=== PATIENT | female | born 1940 | race Caucasian/White ===

== ENCOUNTER 2016-10-09 16:15 | Inpatient (IN) | payer MEDICARE ==
[~2016-10-09] VITALS: Ht 160 cm; Wt 53.5 kg
[~2016-10-09 16:15] MED LIST: AUD NEB; BISA10S PR; ERGO2000 PO; FURO20 PO; IPRNEB IH; LACT30L PO; LINE600 PO; MOM30 PO; ONDA4 PO; PANT40TA25 PO
[2016-10-09] MEDS ORDERED: FOLI0.8T2 PO (16:27)
[2016-10-09] MEDS ORDERED: IPRA3AMP4 NEB (16:27)
[2016-10-09] MEDS ORDERED: INSLAN SQ (16:27)
[2016-10-09] MEDS ORDERED: KDUR20 PO (16:27)
[2016-10-09 17:41] LABS: ANION GAP 7 mmol/L (8-16); CALCIUM, TOTAL 8.3 mg/dL (8.8-10.5); CARBON DIOXIDE 30 mmol/L (22-29); CHLORIDE 101 mmol/L (98-107); CREATININE 0.99 mg/dL (0.60-1.30); GLOMERULAR FILTR. RATE CALC 55 mL/min (>60); POTASSIUM 3.4 mmol/L (3.5-5.1); SODIUM SERUM 138 mmol/L (136-145); UREA NITROGEN, BLOOD 16 mg/dL (7-18)
[2016-10-09 17:43] LABS: HEMATOCRIT 30.3 % (36-46); HEMOGLOBIN 9.5 g/dL (12.0-16.0); MEAN CORPUSCULAR HEMOGLOBIN 25.8 pg (26.0-34.0); MEAN CORPUSCULAR HGB CONC 31.4 G/dL (31.0-37.0); MEAN CORPUSCULAR VOLUME 82 fL (80-100); PLATELET COUNT (AUTO) 247 K/uL (150-450); RED BLOOD CELL COUNT(AUTO) 3.68 MIL/uL (4.00-5.20); RED CELL DISTRIBUTION WIDTH 27.8 % (11.5-14.5); WHITE BLOOD COUNT (AUTO) 9.9 K/uL (4.5-11.0)
[2016-10-09 17:48] LABS: INR 1.3 (0.9-1.1); PROTHROMBIN TIME 13.9 SEC (9.4-11.6)
[2016-10-09 17:48] LABS: ALANINE AMINOTRANSFERASE 78 U/L (12-78); ALBUMIN 1.8 g/dL (3.4-5.0); ASPARTATE AMINOTRANSFERASE 161 U/L (15-37); BILIRUBIN,TOTAL 3.7 mg/dL (0.1-1.0); CREATINE KINASE, TOTAL 59 U/L (26-192)
[2016-10-09 17:49] LABS: TROPONIN I 0.21 ng/mL (0.00-0.05)
[2016-10-09 17:57] LABS: LACTIC ACID 2.2 mmol/L (0.4-2.0)
[2016-10-09 18:19] LABS: APPEARANCE,URINE CLOUDY (CLEAR); GLUCOSE, URINE (UA) NEGATIVE (NEGATIVE); KETONES,URINE NEGATIVE (NEGATIVE); LEUKOCYTE ESTERASE ,URINE SMALL (NEGATIVE); OCCULT BLOOD,URINE SMALL (NEGATIVE); PROTEIN,URINE SEE CONFIRM (NEGATIVE)
[2016-10-09 18:22] LABS: ADD UA MICROSCOPIC YES
[2016-10-09 18:35] LABS: SQUAMOUS EPITHELIAL CELL,UR Moderate /LPF (None Seen); SULFOSALICYLIC ACID,URINE 1+ (Negative)
[2016-10-09 18:44] LABS: BASOPHILS % (MANUAL) 1 % (0-2); LYMPHOCYTES % (MANUAL) 6 % (22-44); TOTAL CELLS COUNTED 100
[2016-10-09 18:47] LABS: RBC MORPHOLOGY COMMENT DIMORPHIC
[2016-10-09] MEDS ORDERED: CefTRIAXone 1 GM/DEXTROSE 50 ML IV ONE (19:00)
[2016-10-09 19:45] LABS: REFLEX LACTIC ACID? YES YES
[2016-10-09] MEDS ORDERED: ONDANSETRON HCL 4 MG/2 ML VIAL IVP PRN (23:15)
[2016-10-09] MEDS ORDERED: ACETAMINOPHEN 325 MG TABLET PO PRN (23:15)
[2016-10-09] MEDS ORDERED: 0.9% SODIUM CHLORIDE 10 ML SYRINGE IVP PRN (23:15)
[2016-10-09] MEDS ORDERED: ASPIRIN 81 MG CHEWABLE TABLET PO ONE (23:15)
[2016-10-09] MEDS ORDERED: POTASSIUM CHLORIDE 10% 40 MEQ/30 ML LIQUID UDCUP PO ONE (23:30)
[2016-10-09] MEDS ORDERED: PIPERACILLIN/TAZO 3.375 GM/D5W 50 ML IV ONE (23:30)
[2016-10-10] VITALS (7 sets, daily range): BP systolic 107–131; BP diastolic 50–77
[2016-10-10 07:37] LABS: HEMATOCRIT 29.3 % (36-46); HEMOGLOBIN 9.2 g/dL (12.0-16.0); MEAN CORPUSCULAR HEMOGLOBIN 26.1 pg (26.0-34.0); MEAN CORPUSCULAR HGB CONC 31.4 G/dL (31.0-37.0); MEAN CORPUSCULAR VOLUME 83 fL (80-100); PLATELET COUNT (AUTO) 224 K/uL (150-450); RED BLOOD CELL COUNT(AUTO) 3.52 MIL/uL (4.00-5.20); WHITE BLOOD COUNT (AUTO) 8.5 K/uL (4.5-11.0)
[2016-10-10 08:08] LABS: ALBUMIN 1.6 g/dL (3.4-5.0); BILIRUBIN,TOTAL 3.6 mg/dL (0.1-1.0); CALCIUM, TOTAL 7.9 mg/dL (8.8-10.5); POTASSIUM 3.6 mmol/L (3.5-5.1); TOTAL PROTEIN, SERUM 6.4 g/dL (6.4-8.2)
[2016-10-10] MEDS ORDERED: DEXTROSE 50%-WATER 25 GM/50 ML SYRINGE IVP PRN (08:30)
[2016-10-10 08:56] LABS: LYMPHOCYTES % (MANUAL) 7 % (22-44); TOTAL CELLS COUNTED 100
[2016-10-10] MEDS: CARVEDILOL 3.125 MG TABLET PO SCH ×2 (09:22→20:35)
[2016-10-10] MEDS: ASPIRIN 81 MG CHEWABLE TABLET PO SCH (09:22)
[2016-10-10] MEDS: INSULIN ASPART 100 UNITS/ML SQ PRN ×3 (12:12→20:40)
[2016-10-10] MEDS ORDERED: VANCOMYCIN HCL 1 GM/D5% WATER 200 ML IV ONE (14:00)
[2016-10-10] MEDS ORDERED: SODIUM CHLORIDE 0.9% 100 ML ONE (14:49)
[2016-10-10] MEDS: PIPERACILLIN SODIUM/TAZOBACTAM 2.25 GM in DEXTROSE 5%-WATER 50 ML IV SCH ×2 (15:08→20:35)
[2016-10-10 17:36] LABS: GLUCOSE COMMENT 1 Received Meds; GLUCOSE,POINT OF CARE 193 MG/DL (70-110)
[2016-10-10] MEDS ORDERED: VANCOMYCIN HCL 500 MG in DEXTROSE 5%-WATER 100 ML IV SCH (20:00)
[2016-10-10] MEDS: SIMVASTATIN 20 MG TABLET PO SCH (20:36)
[2016-10-11] VITALS (7 sets, daily range): BP systolic 100–127; BP diastolic 43–78
[2016-10-11] MEDS: PIPERACILLIN SODIUM/TAZOBACTAM 2.25 GM in DEXTROSE 5%-WATER 50 ML IV SCH ×4 (02:02→20:05)
[2016-10-11] MEDS: INSULIN ASPART 100 UNITS/ML SQ PRN ×4 (05:45→20:48)
[2016-10-11 06:22] LABS: HEMATOCRIT 25.7 % (36-46); HEMOGLOBIN 8.2 g/dL (12.0-16.0); MEAN CORPUSCULAR HEMOGLOBIN 26.3 pg (26.0-34.0); MEAN CORPUSCULAR VOLUME 82 fL (80-100); PLATELET COUNT (AUTO) 190 K/uL (150-450); RED BLOOD CELL COUNT(AUTO) 3.14 MIL/uL (4.00-5.20); RED CELL DISTRIBUTION WIDTH 27.9 % (11.5-14.5); WHITE BLOOD COUNT (AUTO) 6.7 K/uL (4.5-11.0)
[2016-10-11 06:35] LABS: HEMOGLOBIN A1C 6.2 % (4.5-6.2)
[2016-10-11 07:17] LABS: CALCIUM, TOTAL 7.6 mg/dL (8.8-10.5); CHOL/HDL RATIO 13.1 (3.9-5.7); CREATININE 1.25 mg/dL (0.60-1.30); MAGNESIUM 1.7 mg/dL (1.80-2.40); POTASSIUM 4.2 mmol/L (3.5-5.1); THYROID STIMULATING HORMONE 8.14 uIU/mL (0.36-3.74)
[2016-10-11] MEDS: ASPIRIN 81 MG CHEWABLE TABLET PO SCH (08:10)
[2016-10-11] MEDS: VANCOMYCIN HCL 1 GM/D5% WATER 200 ML IV SCH (08:49)
[2016-10-11] MEDS ORDERED: SODIUM CHLORIDE 0.9% 100 ML ONE (09:49)
[2016-10-11] MEDS: CARVEDILOL 3.125 MG TABLET PO SCH ×2 (09:50→20:05)
[2016-10-11 09:53] LABS: VITAMIN B12 LEVEL > 2000 pg/mL (211-911)
[2016-10-11 10:49] LABS: RBC MORPHOLOGY COMMENT ABNORMAL RBC MORPH
[2016-10-11 11:04] LABS: LYMPHOCYTES % (MANUAL) 12 % (22-44); TOTAL CELLS COUNTED 100
[2016-10-11] MEDS ORDERED: MAGNESIUM SULFATE 4 GM/WATER 100 ML IV PRN (13:45)
[2016-10-11] MEDS ORDERED: MAGNESIUM SULFATE 2 GM in DEXTROSE 5%-WATER 50 ML IV PRN (13:45)
[2016-10-11] MEDS ORDERED: 0.9% SODIUM CHLORIDE 10 ML SYRINGE IVP PRN (14:15)
[2016-10-11 14:48] LABS: ALBUMIN 1.5 g/dL (3.4-5.0)
[2016-10-11] MEDS: EPOETIN ALFA 10,000 UNITS/ML VIAL SQ SCH (15:24)
[2016-10-11] MEDS: MAGNESIUM OXIDE 400 MG TABLET PO PRN ×2 (15:28→17:54)
[2016-10-11] MEDS: SIMVASTATIN 20 MG TABLET PO SCH (20:05)
[2016-10-11 20:07] LABS: GLUCOSE COMMENT 1 Received Meds; GLUCOSE,POINT OF CARE 233 MG/DL (70-110)
[2016-10-11 20:07] LABS: GLUCOSE,POINT OF CARE 154 MG/DL (70-110)
[2016-10-11 20:07] LABS: GLUCOSE COMMENT 1 Received Meds; GLUCOSE,POINT OF CARE 198 MG/DL (70-110)
[2016-10-11 20:07] LABS: GLUCOSE COMMENT 1 Received Meds; GLUCOSE,POINT OF CARE 221 MG/DL (70-110)
[2016-10-11 20:07] LABS: GLUCOSE COMMENT 1 Received Meds; GLUCOSE,POINT OF CARE 157 MG/DL (70-110)
[2016-10-11] MEDS: INSULIN DETEMIR 100 UNITS/ML SQ SCH (20:47)
[2016-10-12] VITALS (8 sets, daily range): BP systolic 95–152; BP diastolic 46–61
[2016-10-12] MEDS: PIPERACILLIN SODIUM/TAZOBACTAM 2.25 GM in DEXTROSE 5%-WATER 50 ML IV SCH ×2 (03:18→07:14)
[2016-10-12 06:34] LABS: HEMATOCRIT 26.3 % (36-46); HEMOGLOBIN 8.3 g/dL (12.0-16.0); MEAN CORPUSCULAR HGB CONC 31.5 G/dL (31.0-37.0); MEAN CORPUSCULAR VOLUME 83 fL (80-100); PLATELET COUNT (AUTO) 172 K/uL (150-450); RED BLOOD CELL COUNT(AUTO) 3.19 MIL/uL (4.00-5.20); RED CELL DISTRIBUTION WIDTH 27.2 % (11.5-14.5); WHITE BLOOD COUNT (AUTO) 7.5 K/uL (4.5-11.0)
[2016-10-12 07:23] LABS: CALCIUM, TOTAL 7.5 mg/dL (8.8-10.5); CREATININE 1.42 mg/dL (0.60-1.30); MAGNESIUM 1.9 mg/dL (1.80-2.40); POTASSIUM 3.3 mmol/L (3.5-5.1); THYROID STIMULATING HORMONE 14.26 uIU/mL (0.36-3.74)
[2016-10-12] MEDS: ASPIRIN 81 MG CHEWABLE TABLET PO SCH (07:43)
[2016-10-12] MEDS: FOLIC ACID 1 MG TABLET PO SCH (07:44)
[2016-10-12] MEDS: CARVEDILOL 3.125 MG TABLET PO SCH ×2 (07:45→20:15)
[2016-10-12] MEDS: VANCOMYCIN HCL 1 GM/D5% WATER 200 ML IV SCH (08:16)
[2016-10-12 10:00] LABS: BAND NEUTROPHILS % (MANUAL) 1 % (1-5); LYMPHOCYTES % (MANUAL) 13 % (22-44); TOTAL CELLS COUNTED 100
[2016-10-12 10:02] LABS: RBC MORPHOLOGY COMMENT ABNORMAL R
[2016-10-12] MEDS ORDERED: POTASSIUM CHLORIDE 20 MEQ ER TABLET PO ONE (11:15)
[2016-10-12] MEDS: INSULIN ASPART 100 UNITS/ML SQ PRN ×3 (11:32→20:47)
[2016-10-12] MEDS: LEVOTHYROXINE SODIUM 25 MCG TABLET PO SCH (11:55)
[2016-10-12] MEDS: CefTRIAXone 1 GM/DEXTROSE 50 ML IV SCH (12:37)
[2016-10-12] MEDS: FLUCONAZOLE IV SCH (15:03)
[2016-10-12] MEDS: NACL ISOOSM IV SCH (15:03)
[2016-10-12 19:56] LABS: GLUCOSE COMMENT 1 Received Meds; GLUCOSE,POINT OF CARE 152 MG/DL (70-110)
[2016-10-12 19:56] LABS: GLUCOSE COMMENT 1 Received Meds; GLUCOSE,POINT OF CARE 218 MG/DL (70-110)
[2016-10-12 19:56] LABS: GLUCOSE COMMENT 1 Received Meds; GLUCOSE,POINT OF CARE 220 MG/DL (70-110)
[2016-10-12] MEDS: SIMVASTATIN 20 MG TABLET PO SCH (20:15)
[2016-10-12] MEDS: INSULIN DETEMIR 100 UNITS/ML SQ SCH (20:48)
[2016-10-13 04:23] VITALS: BP 133/58
[2016-10-13] MEDS: LEVOTHYROXINE SODIUM 25 MCG TABLET PO SCH ×2 (06:30→06:32)
[2016-10-13] MEDS: INSULIN ASPART 100 UNITS/ML SQ PRN (06:38)
[2016-10-13 07:05] LABS: GLUCOSE,POINT OF CARE 93 MG/DL (70-110)
[2016-10-13 07:06] LABS: GLUCOSE,POINT OF CARE 232 MG/DL (70-110)
[2016-10-13 07:21] VITALS: BP 126/54
[2016-10-13 07:54] LABS: HEMATOCRIT 27.3 % (36-46); HEMOGLOBIN 8.7 g/dL (12.0-16.0); MEAN CORPUSCULAR HEMOGLOBIN 26.1 pg (26.0-34.0); MEAN CORPUSCULAR HGB CONC 31.8 G/dL (31.0-37.0); MEAN CORPUSCULAR VOLUME 82 fL (80-100); PLATELET COUNT (AUTO) 191 K/uL (150-450); RED BLOOD CELL COUNT(AUTO) 3.32 MIL/uL (4.00-5.20); RED CELL DISTRIBUTION WIDTH 26.8 % (11.5-14.5); WHITE BLOOD COUNT (AUTO) 8.1 K/uL (4.5-11.0)
[2016-10-13 08:05] LABS: CALCIUM, TOTAL 7.3 mg/dL (8.8-10.5); CREATININE 1.37 mg/dL (0.60-1.30); POTASSIUM 3.7 mmol/L (3.5-5.1)
[2016-10-13] MEDS: ASPIRIN 81 MG CHEWABLE TABLET PO SCH (08:37)
[2016-10-13] MEDS: FOLIC ACID 1 MG TABLET PO SCH (08:37)
[2016-10-13] MEDS: CARVEDILOL 3.125 MG TABLET PO SCH (08:37)
[2016-10-13 08:39] LABS: BASOPHILS % (MANUAL) 1 % (0-2); LYMPHOCYTES % (MANUAL) 10 % (22-44); TOTAL CELLS COUNTED 100
[2016-10-13 08:42] LABS: RBC MORPHOLOGY COMMENT ABNORMAL RBC MORPH
[2016-10-13] MEDS: EPOETIN ALFA 10,000 UNITS/ML VIAL SQ SCH (08:43)
[2016-10-13] MEDS ORDERED: DOCUSATE SODIUM 100 MG CAPSULE PO SCH (09:00)
[2016-10-13] MEDS ORDERED: LACTULOSE 20 GM/30 ML SOLUTION UDCUP PO PRN (09:00)
[2016-10-13] MEDS ORDERED: SODIUM CHLORIDE 0.9% 500 ML IV ONE (09:00)
[2016-10-13] MEDS ORDERED: BISACODYL 5 MG EC TABLET PO PRN (09:00)
[2016-10-13 11:30] VITALS: BP 115/52
[2016-10-13 12:11] LABS: GLUCOSE COMMENT 1 Received Meds; GLUCOSE,POINT OF CARE 162 MG/DL (70-110)
[2016-10-13] MEDS: FLUCONAZOLE IV SCH (13:50)
[2016-10-13] MEDS: NACL ISOOSM IV SCH (13:50)
[2016-10-13] MEDS ORDERED: HEPARIN SODIUM 1000 UNITS/NS 500 ML ONE (15:11)
[2016-10-13 16:17] VITALS: BP 121/60
[2016-10-13] MEDS: CefTRIAXone 1 GM/DEXTROSE 50 ML IV SCH (17:24)
[2016-10-13] MEDS ORDERED: ASPI81TA2 PO (18:40)
[2016-10-13] MEDS ORDERED: CARV3 PO (18:46)
[2016-10-13] MEDS ORDERED: LEVO25TA9 PO (18:47)
[2016-10-13] MEDS ORDERED: SIMV-259 PO (18:49)
[2016-10-14 00:47] LABS: GLUCOSE,POINT OF CARE 96 MG/DL (70-110)
[2016-10-25 12:32] LABS: GLUCOSE,POINT OF CARE 164 MG/DL (70-110)
== END 2016-10-13 18:30 | DRG 871 ==
LOC: EMS 16:17 → 5N 23:18
PROVIDERS: ADMIT Internal Medicine Geriatric Medicine; ATTEND Internal Medicine Geriatric Medicine
PROC: 05HB33Z Insertion of Infusion Device into Right Basilic Vein, Percutaneous Approach (ICD-10-PCS; principal; 2016-10-13)
PROC: B54MZZA Ultrasonography of Right Upper Extremity Veins, Guidance (ICD-10-PCS; 2016-10-13)
DX: A41.9 Sepsis, unspecified organism (principal); G93.40 Encephalopathy, unspecified; E43 Unspecified severe protein-calorie malnutrition; E87.1 Hypo-osmolality and hyponatremia; I13.0 Hypertensive heart and chronic kidney disease with heart failure and stage 1 through stage 4 chronic kidney disease, or unspecified chronic kidney disease; N12 Tubulo-interstitial nephritis, not specified as acute or chronic; G81.94 Hemiplegia, unspecified affecting left nondominant side; R62.7 Adult failure to thrive; I25.10 Atherosclerotic heart disease of native coronary artery without angina pectoris; I50.9 Heart failure, unspecified; K74.60 Unspecified cirrhosis of liver; D64.9 Anemia, unspecified; E78.00 Pure hypercholesterolemia, unspecified; F03.90 Unspecified dementia, unspecified severity, without behavioral disturbance, psychotic disturbance, mood disturbance, and anxiety; E11.22 Type 2 diabetes mellitus with diabetic chronic kidney disease; E03.9 Hypothyroidism, unspecified; N18.9 Chronic kidney disease, unspecified; E11.51 Type 2 diabetes mellitus with diabetic peripheral angiopathy without gangrene; K59.00 Constipation, unspecified; Z89.611 Acquired absence of right leg above knee; Z79.4 Long term (current) use of insulin; Z79.899 Other long term (current) drug therapy; Z95.5 Presence of coronary angioplasty implant and graft; Z95.1 Presence of aortocoronary bypass graft; Z68.20 Body mass index [BMI] 20.0-20.9, adult; Z87.442 Personal history of urinary calculi; Z87.01 Personal history of pneumonia (recurrent); Z88.8 Allergy status to other drugs, medicaments and biological substances
CPT/HCPCS: 36245; 36569; 70450; 74176; 82306; 82607; 82746; 82962; 83036; 83605; 83735; 84439; 84443; 87040; 87081; 93005; 96365; 96367; 97110; 97163; 97166; 97535; 99285; J0696; J0885; J1450; J1644; J2543; J3370; J7040; J7050; J7060

== ENCOUNTER 2016-10-28 17:23 | Inpatient (IN) | payer MEDICARE ==
[~2016-10-28] VITALS: Ht 154.9 cm; Wt 58.6 kg
[~2016-10-28 17:23] MED LIST changes: +ASPI81TA2 PO; -AUD NEB; -BISA10S PR; +CARV3 PO; -ERGO2000 PO; +FOLI0.8T2 PO; -FURO20 PO; +INSLAN SQ; -IPRNEB IH; -LACT30L PO; +LEVO25TA9 PO; -LINE600 PO; -MOM30 PO; -ONDA4 PO; -PANT40TA25 PO; +SIMV-259 PO
[2016-10-28 17:37] LABS: GLUCOSE,POINT OF CARE 109 MG/DL (70-110)
[2016-10-28] MEDS ORDERED: MOM30 PO (17:40)
[2016-10-28] MEDS ORDERED: LACT30L PO (17:40)
[2016-10-28] MEDS ORDERED: ACET-2247 PO (17:40)
[2016-10-28] MEDS ORDERED: BISA10S PR (17:40)
[2016-10-28] MEDS ORDERED: DSS100 PO (17:40)
[2016-10-28] MEDS ORDERED: FE PR (17:40)
[2016-10-28] MEDS ORDERED: SODIUM CHLORIDE 0.9% 1,000 ML IV ONE ×2 (17:45→19:15)
[2016-10-28 17:52] LABS: ANION GAP 13 mmol/L (8-16); CALCIUM, TOTAL 8.5 mg/dL (8.8-10.5); CARBON DIOXIDE 25 mmol/L (22-29); CHLORIDE 110 mmol/L (98-107); CREATININE 1.85 mg/dL (0.60-1.30); GLOMERULAR FILTR. RATE CALC 27 mL/min (>60); POTASSIUM 4.1 mmol/L (3.5-5.1); SODIUM SERUM 148 mmol/L (136-145); UREA NITROGEN, BLOOD 51 mg/dL (7-18)
[2016-10-28 17:58] LABS: HEMATOCRIT 38.5 % (36-46); HEMOGLOBIN 11.8 g/dL (12.0-16.0); MEAN CORPUSCULAR HEMOGLOBIN 25.7 pg (26.0-34.0); MEAN CORPUSCULAR HGB CONC 30.6 G/dL (31.0-37.0); MEAN CORPUSCULAR VOLUME 84 fL (80-100); PLATELET COUNT (AUTO) 241 K/uL (150-450); RED BLOOD CELL COUNT(AUTO) 4.58 MIL/uL (4.00-5.20); RED CELL DISTRIBUTION WIDTH 25.4 % (11.5-14.5); WHITE BLOOD COUNT (AUTO) 5.1 K/uL (4.5-11.0)
[2016-10-28 18:00] LABS: PROTHROMBIN TIME 21.3 SEC (9.4-11.6)
[2016-10-28 18:07] LABS: LACTIC ACID 7.9 mmol/L (0.4-2.0)
[2016-10-28] MEDS ORDERED: NOREPINEPHRINE 4 MG/D5%-WATER 250 ML IV ONE (18:10)
[2016-10-28 18:15] LABS: ALANINE AMINOTRANSFERASE 64 U/L (12-78); ALBUMIN 1.4 g/dL (3.4-5.0); ASPARTATE AMINOTRANSFERASE 162 U/L (15-37); CREATINE KINASE MB 2.7 ng/mL (0-5); CREATINE KINASE, TOTAL 92 U/L (26-192); TOTAL PROTEIN, SERUM 5.3 g/dL (6.4-8.2)
[2016-10-28 18:29] LABS: APPEARANCE,URINE CLOUDY (CLEAR); GLUCOSE, URINE (UA) NEGATIVE (NEGATIVE); KETONES,URINE NEGATIVE (NEGATIVE); LEUKOCYTE ESTERASE ,URINE TRACE (NEGATIVE); OCCULT BLOOD,URINE NEGATIVE (NEGATIVE); PROTEIN,URINE POS 1+ (NEGATIVE)
[2016-10-28 18:31] LABS: BAND NEUTROPHILS % (MANUAL) 13 % (1-5); LYMPHOCYTES % (MANUAL) 18 % (22-44); TOTAL CELLS COUNTED 100
[2016-10-28 18:38] LABS: ADD UA MICROSCOPIC YES
[2016-10-28] MEDS ORDERED: NOREPINEPHRINE 4 MG/D5%-WATER 250 ML IV PRN ×2 (18:45→19:15)
[2016-10-28] MEDS ORDERED: RAPID SEQUENCE KIT [RSI] 1 EACH KIT ONE ×2 (18:48)
[2016-10-28] MEDS ORDERED: SUCCINYLCHOLINE CHLORIDE 20 MG/ML 10 ML VIAL ONE (18:49)
[2016-10-28 18:59] LABS: COARSE GRANULAR CASTS,URINE 0-2 /LPF (None Seen); SQUAMOUS EPITHELIAL CELL,UR Few /LPF (None Seen)
[2016-10-28 19:00] LABS: AMORPHOUS SEDIMENT,UR Few /LPF (None Seen)
[2016-10-28 19:04] LABS: RBC,URINE None Seen /HPF (0-2)
[2016-10-28] MEDS ORDERED: HEPARIN SODIUM,PORCINE 5,000 UNITS/ML VIAL IVP ONE ×2 (19:15→19:45)
[2016-10-28] MEDS ORDERED: ETOMIDATE 2 MG/ML 10 ML VIAL IVP ONE (19:15)
[2016-10-28] MEDS ORDERED: SUCCINYLCHOLINE CHLORIDE 20 MG/ML 10 ML VIAL IVP ONE (19:15)
[2016-10-28] MEDS ORDERED: HEPARIN SODIUM 25000 UNITS/D5W 250 ML IV PRN (19:15)
[2016-10-28] MEDS ORDERED: ACETAMINOPHEN 325 MG TABLET PO PRN (19:30)
[2016-10-28] MEDS ORDERED: ONDANSETRON HCL 4 MG/2 ML VIAL IVP PRN (19:30)
[2016-10-28] MEDS ORDERED: 0.9% SODIUM CHLORIDE 10 ML SYRINGE IVP PRN (19:30)
[2016-10-28 19:39] LABS: REFLEX LACTIC ACID? YES YES
[2016-10-28] MEDS ORDERED: VANCOMYCIN HCL 1 GM/D5% WATER 200 ML IV ONE (20:00)
[2016-10-28] MEDS ORDERED: PIPERACILLIN SODIUM/TAZOBACTAM 2.25 GM in DEXTROSE 5%-WATER 50 ML IV SCH (20:00)
[2016-10-28 20:49] LABS: ABG A-A DIFF O2 105.1 mmHg (10-20.0); ABG BASE EXCESS -11.8 mmol/L (-2.0-3.0); ABG HCO3 16.6 mmol/L (22.0-26.0); ABG PCO2 22 mmHg (35-45); TEMPERATURE, FAHRENHEIT, BG 94.7 FAHREN (96.0-98.6)
[2016-10-28 20:50] LABS: ALLEN TEST, BLOOD GAS POSITIVE
[2016-10-28 21:36] LABS: CALCIUM, TOTAL 8.7 mg/dL (8.8-10.5); CREATININE 1.79 mg/dL (0.60-1.30); POTASSIUM 4.1 mmol/L (3.5-5.1)
[2016-10-28 21:46] LABS: ALBUMIN 1.4 g/dL (3.4-5.0); BILIRUBIN,TOTAL 3.4 mg/dL (0.1-1.0); TOTAL PROTEIN, SERUM 5.5 g/dL (6.4-8.2)
[2016-10-29] MEDS ORDERED: ALBUTEROL SULFATE 2.5 MG/0.5 ML NEB SOLUTION NEB PRN (00:30)
[2016-10-29] MEDS ORDERED: BISACODYL 10 MG RECTAL RECTAL SUPPOSITORY PR PRN (00:30)
[2016-10-29] MEDS ORDERED: ONDANSETRON HCL 4 MG/2 ML VIAL IVP PRN (00:30)
[2016-10-29] MEDS ORDERED: SODIUM CHLORIDE 0.45% 1,000 ML IV ONE (00:30)
[2016-10-29] MEDS ORDERED: IPRATROPIUM BROMIDE 0.5 MG/2.5 ML NEB SOLUTION NEB PRN (00:30)
[2016-10-29] MEDS ORDERED: MAGNESIUM HYDROXIDE SUSPENSION 30 ML UDCUP PO PRN (00:30)
[2016-10-29] MEDS: NOREPINEPHRINE 4 MG/D5%-WATER 250 ML IV PRN ×2 (01:03→09:15)
[2016-10-29] MEDS ORDERED: PHENYLEPHRINE 200 MG/D5%-WATER 250 ML IV ONE (01:50)
[2016-10-29] MEDS ORDERED: SODIUM CHLORIDE 0.9% 1,000 ML IV ONE (02:00)
[2016-10-29] MEDS: PIPERACILLIN SODIUM/TAZOBACTAM 2.25 GM in DEXTROSE 5%-WATER 50 ML IV SCH ×2 (02:02→09:20)
[2016-10-29] MEDS ORDERED: PHENYLEPHRINE 200 MG/D5%-WATER 250 ML IV PRN (02:15)
[2016-10-29 04:00] VITALS: BP 73/45
[2016-10-29] MEDS ORDERED: DOPamine HCL 400 MG/D5%-WATER 250 ML IV PRN (04:13)
[2016-10-29] MEDS ORDERED: VASOPRESSIN 100 UNITS in DEXTROSE 5%-WATER 245 ML IV PRN (04:15)
[2016-10-29] MEDS ORDERED: SODIUM CHLORIDE 0.45% 500 ML IV ONE (04:15)
[2016-10-29 04:33] LABS: HEMOGLOBIN A1C 6.3 % (4.5-6.2)
[2016-10-29] MEDS ORDERED: DOPamine HCL 400 MG/D5%-WATER 0 ML IV ONE (04:43)
[2016-10-29 04:46] LABS: CALCIUM, TOTAL 7.7 mg/dL (8.8-10.5); CHOL/HDL RATIO 3.9 (3.9-5.7); CREATINE KINASE MB 17.1 ng/mL (0-5); CREATININE 2.11 mg/dL (0.60-1.30); MAGNESIUM 2.4 mg/dL (1.80-2.40); POTASSIUM 4.4 mmol/L (3.5-5.1); THYROID STIMULATING HORMONE 21.22 uIU/mL (0.36-3.74)
[2016-10-29] MEDS: ALBUMIN HUMAN 25%-25GM/100ML 100 ML IV SCH ×2 (05:17→13:00)
[2016-10-29 05:52] LABS: MEAN CORPUSCULAR HEMOGLOBIN 25.3 pg (26.0-34.0); MEAN CORPUSCULAR HGB CONC 28.8 G/dL (31.0-37.0); PLATELET COUNT (AUTO) 194 K/uL (150-450); RED BLOOD CELL COUNT(AUTO) 4.74 MIL/uL (4.00-5.20)
[2016-10-29 06:00] VITALS: BP 99/55
[2016-10-29 06:45] LABS: HEMATOCRIT 39.5 % (36-46)
[2016-10-29 06:46] LABS: MEAN CORPUSCULAR VOLUME 86 fL (80-100); WHITE BLOOD COUNT (AUTO) 10.6 K/uL (4.5-11.0)
[2016-10-29] MEDS ORDERED: HEPARIN SODIUM,PORCINE 5,000 UNITS/ML VIAL SQ SCH (08:00)
[2016-10-29] MEDS ORDERED: VANCOMYCIN HCL 500 MG in DEXTROSE 5%-WATER 100 ML IV SCH (08:00)
[2016-10-29] MEDS ORDERED: SODIUM BICARBONATE [ADULT] 8.4% 50 MEQ/50 ML SYRINGE IVP ONE (08:30)
[2016-10-29] MEDS ORDERED: PANTOPRAZOLE SODIUM 40 MG/VIAL IVP SCH (09:00)
[2016-10-29 09:08] LABS: BAND NEUTROPHILS % (MANUAL) 9 % (1-5); LYMPHOCYTES % (MANUAL) 19 % (22-44); TOTAL CELLS COUNTED 100
[2016-10-29 09:09] LABS: RBC MORPHOLOGY COMMENT ABNORMAL R
[2016-10-29 09:30] LABS: VITAMIN B12 LEVEL > 2000 pg/mL (211-911)
[2016-10-29] MEDS ORDERED: ETOMIDATE 2 MG/ML 10 ML VIAL IVP ONE (12:00)
[2016-10-29] MEDS ORDERED: SUCCINYLCHOLINE CHLORIDE 20 MG/ML 10 ML VIAL IVP ONE (12:00)
[2016-10-29] MEDS ORDERED: MORPHINE SULFATE 100 MG/NS/PF 100 ML IV PRN (13:15)
== END 2016-10-29 15:30 | disposition expired | DRG 871 ==
LOC: EMS 17:25 → ICU 10-29 02:04
PROVIDERS: ADMIT Internal Medicine Geriatric Medicine; ATTEND Internal Medicine Geriatric Medicine
PROC: 5A1935Z Respiratory Ventilation, Less than 24 Consecutive Hours (ICD-10-PCS; principal; 2016-10-29)
PROC: 0BH17EZ Insertion of Endotracheal Airway into Trachea, Via Natural or Artificial Opening (ICD-10-PCS; 2016-10-29)
DX: A41.9 Sepsis, unspecified organism (principal); I50.23 Acute on chronic systolic (congestive) heart failure; J18.9 Pneumonia, unspecified organism; R65.21 Severe sepsis with septic shock; J96.90 Respiratory failure, unspecified, unspecified whether with hypoxia or hypercapnia; N17.0 Acute kidney failure with tubular necrosis; G93.1 Anoxic brain damage, not elsewhere classified; E87.2 Acidosis; I13.0 Hypertensive heart and chronic kidney disease with heart failure and stage 1 through stage 4 chronic kidney disease, or unspecified chronic kidney disease; I42.9 Cardiomyopathy, unspecified; N39.0 Urinary tract infection, site not specified; N18.4 Chronic kidney disease, stage 4 (severe); I69.354 Hemiplegia and hemiparesis following cerebral infarction affecting left non-dominant side; I46.9 Cardiac arrest, cause unspecified; I48.0 Paroxysmal atrial fibrillation; Z89.611 Acquired absence of right leg above knee; N28.9 Disorder of kidney and ureter, unspecified; E03.9 Hypothyroidism, unspecified; E11.22 Type 2 diabetes mellitus with diabetic chronic kidney disease; E78.00 Pure hypercholesterolemia, unspecified; E78.5 Hyperlipidemia, unspecified; Z66 Do not resuscitate; F01.50 Vascular dementia, unspecified severity, without behavioral disturbance, psychotic disturbance, mood disturbance, and anxiety; M62.81 Muscle weakness (generalized); K74.60 Unspecified cirrhosis of liver; I25.10 Atherosclerotic heart disease of native coronary artery without angina pectoris; I25.2 Old myocardial infarction; I73.9 Peripheral vascular disease, unspecified; Z87.440 Personal history of urinary (tract) infections; Z88.8 Allergy status to other drugs, medicaments and biological substances; Z79.82 Long term (current) use of aspirin; Z79.4 Long term (current) use of insulin; Z79.899 Other long term (current) drug therapy; Z93.6 Other artificial openings of urinary tract status; I69.920 Aphasia following unspecified cerebrovascular disease; Z87.442 Personal history of urinary calculi; Z95.1 Presence of aortocoronary bypass graft; Z95.5 Presence of coronary angioplasty implant and graft; Z98.890 Other specified postprocedural states; Z51.5 Encounter for palliative care
CPT/HCPCS: 31500; 36556; 51702; 70450; 82306; 82607; 82746; 82805; 82962; 83036; 83605; 83735; 84439; 84443; 87040; 87081; 87086; 92950; 93005; 94002; 94003; 96365; 96366; 96368; 96375; 99291; C9113; J0330; J1265; J1644; J2270; J2370; J2543; J3370; J3490; J7030; J7060; P9046